=== PATIENT | female | born 1950 | race Caucasian/White ===

== ENCOUNTER 2022-06-05 14:47 | Outpatient (CLI) | payer OTHER, MEDICAID ==
[2022-06-05 15:14] LABS: #Basophils 0.1 thou/uL (0.0-0.2); #Eosinphils 0.2 thou/uL (0.0-0.7); #Monocytes 0.6 thou/uL (0.11-0.59); #Neutrophils 3.7 thou/uL (1.40-6.50); %Basophils 1.1 % (0.0-1.0); %Eosinophils 2.8 % (0.0-10.0); %Lymphocytes 30.7 % (21.0-51.0); %Monocytes 8.6 % (0.0-10.0); %Neutrophils 56.8 % (42.0-75.0); Hemoglobin 11.1 g/dL (12.0-16.0); Mean Corpuscular HGB CONC 31.9 g/dL (32.0-36.0); Mean Corpuscular Hemoglobin 27.6 pg (27.0-31.0); Mean Corpuscular Volume 86.6 fl (78.0-98.0); Platelet Count 256 10x3/uL (130-400); RBC Distribution Width 14.1 % (11.5-14.5); White Blood Cell (WBC) Count 6.5 10x3/uL (4.8-10.8)
[2022-06-05 15:25] LABS: Anion Gap 14 mmol/L (10-20); BUN (Urea Nitrogen) 14 mg/dL (9.8-20.1); Calc. Creatinine Clearance 0 mL/min (70-130); Calcium 8.9 mg/dL (7.8-10.44); Carbon Dioxide 23 mmol/L (23-31); Chloride 109 mmol/L (98-107); Estimated GFR 54; Glucose 136 mg/dL (83-110); Potassium 3.7 mmol/L (3.5-5.1); Sodium 142 mmol/L (136-145)
== END 2022-06-05 14:48 | disposition home or self-care (01) ==
LOC: MADRAD 14:47
DX: R05.9 Cough, unspecified (principal); E78.5 Hyperlipidemia, unspecified; E87.6 Hypokalemia
CPT/HCPCS: 36415; 71046; 80048; 85025

== ENCOUNTER 2023-06-26 15:18 | Emergency (ER) | payer OTHER, MEDICAID ==
[2023-06-26] MEDS ORDERED: Oxymetazoline HCl 0.05% (30 ML BOT) ONE (15:59)
== END 2023-06-26 19:08 | disposition home or self-care (01) ==
LOC: MADERS 15:18
DX: R04.0 Epistaxis (principal)
CPT/HCPCS: 99283

== ENCOUNTER 2024-01-11 15:22 | Outpatient (CLI) | payer MEDICARE, MEDICAID | END 2024-01-11 15:23 | disposition home or self-care (01) | LOC: MADRAD 15:22 | PROVIDERS: ATTEND Nurse Practitioner Family | DX: M25.511 Pain in right shoulder (principal); M19.011 Primary osteoarthritis, right shoulder ==